=== PATIENT | female | born 1945 ===

== ENCOUNTER 2018-01-02 06:36 | Day surgery (SDC) | payer OTHER ==
[2018-01-02 07:12] VITALS: O2SAT 100
[2018-01-02] MEDS ORDERED: Propofol 10 mg/ml Inj (20 ML) ONE ×2 (07:54→08:30)
[2018-01-02] MEDS ORDERED: Lactated Ringer's 500 ML IV ONE ×2 (07:57→08:56)
--- NOTE | 2018-01-02 08:00 | CP.SDSHP ---
Same Day Surgery H & P - History Proposed Procedure: EGD. Colonoscopy - Previous Medical/Surgical History Cardiac: Hypertension Endocrine/Metabolic: Diabetes, Obesity Misc: Other (colon polyps) Previous Surgical History: . SELENE. Uterine myomectomy - Allergies Allergies: Allergies aspirin Allergy (Verified 01/02/18 06:57) RASH - Physical Exam Vital Signs: Vital Signs 01/02/18 06:45 Temperature 97.4 F L Pulse Rate 61 Respiratory 19 Rate Blood Pressure 188/57 H O2 Sat by Pulse 100 Oximetry Mental Status: Alert & Oriented x3 Neuro: WNL Heart: WNL Lungs: WNL GI: WNL - Impression Impression: heartburn. epigastric pain. h/o colon polyps Pt. Evaluated Today:Candidate for Anesthesia & Procedure: Yes - Date & Time Date: 01/02/18 Time: 08:00 Short Stay Discharge - Short Stay Discharge Admitting Diagnosis/Reason for Visit: EPIGASTRIC PAIN/HEARTBURN/P/H COLON POLYPS Disposition: HOME/ ROUTINE
[2018-01-02 09:12] VITALS: TEMP 97
[2018-01-02] MEDS ORDERED: Pantoprazole 40 mg EC Tab PO ONE (09:15)
[2018-01-02 09:55] VITALS: PULSE 56
[2018-01-02 10:05] VITALS: BP 186/56; RESP 18
== END 2018-01-02 10:03 | disposition home or self-care (01) ==
LOC: C.ENDO 06:36
PROVIDERS: ATTEND Internal Medicine Gastroenterology
DX: D12.5 Benign neoplasm of sigmoid colon (principal); R10.13 Epigastric pain; K57.30 Diverticulosis of large intestine without perforation or abscess without bleeding; D12.3 Benign neoplasm of transverse colon; K64.1 Second degree hemorrhoids; Z86.010 Personal history of colon polyps; K44.9 Diaphragmatic hernia without obstruction or gangrene; K31.7 Polyp of stomach and duodenum; K21.0 Gastro-esophageal reflux disease with esophagitis; K29.50 Unspecified chronic gastritis without bleeding; B96.81 Helicobacter pylori [H. pylori] as the cause of diseases classified elsewhere; E11.9 Type 2 diabetes mellitus without complications; I10 Essential (primary) hypertension; E66.9 Obesity, unspecified
CPT/HCPCS: 43239; 45385; 82948; 88305; J2001; J2704; J7040; J7120

== ENCOUNTER 2018-05-23 07:43 | Day surgery (SDC) | payer OTHER ==
[2018-05-23 08:28] VITALS: O2SAT 100
[2018-05-23] MEDS ORDERED: Propofol 10 mg/ml Inj (20 ML) ONE (08:42)
[2018-05-23] MEDS ORDERED: Lactated Ringer's 500 ML IV SCH (08:45)
--- NOTE | 2018-05-23 09:03 | CP.SDSHP ---
Same Day Surgery H & P - History Proposed Procedure: colonoscopy Pre-Op Diagnosis: Multiple colon adenomas. Large SSA with piecemeal removal - Previous Medical/Surgical History Cardiac: Hypertension Endocrine/Metabolic: Diabetes Misc: Other (Gerd, Hpylori gastritis, colon polyps, ) Previous Surgical History: . T & A - Allergies Allergies: Allergies aspirin Allergy (Verified 01/02/18 06:57) RASH - Physical Exam Vital Signs: Vital Signs 05/23/18 08:10 Temperature 97.6 F Pulse Rate 63 Respiratory 19 Rate Blood Pressure 152/59 H O2 Sat by Pulse 100 Oximetry Mental Status: Alert & Oriented x3 Neuro: WNL Heart: WNL Lungs: WNL GI: WNL - Impression Impression: Multiple colon polysp. Large SSA with piecemeal removal Pt. Evaluated Today:Candidate for Anesthesia & Procedure: Yes - Date & Time Date: 05/23/18 Time: 09:03 Short Stay Discharge - Short Stay Discharge Admitting Diagnosis/Reason for Visit: GERD, PERSONAL HISTORY OF POLYP Disposition: HOME/ ROUTINE
[2018-05-23 09:37] VITALS: TEMP 98.9
[2018-05-23 10:27] VITALS: PULSE 52; RESP 19
[2018-05-23 10:40] VITALS: BP 128/65
== END 2018-05-23 10:27 | disposition home or self-care (01) ==
LOC: C.ENDO 07:43
PROVIDERS: ATTEND Internal Medicine Gastroenterology
DX: Z12.11 Encounter for screening for malignant neoplasm of colon (principal); D12.3 Benign neoplasm of transverse colon; K57.30 Diverticulosis of large intestine without perforation or abscess without bleeding; K64.1 Second degree hemorrhoids; K63.89 Other specified diseases of intestine; Z86.010 Personal history of colon polyps; K21.9 Gastro-esophageal reflux disease without esophagitis; I10 Essential (primary) hypertension; E11.9 Type 2 diabetes mellitus without complications; Z86.19 Personal history of other infectious and parasitic diseases; Z87.19 Personal history of other diseases of the digestive system; Z98.890 Other specified postprocedural states; Z79.84 Long term (current) use of oral hypoglycemic drugs; Z79.899 Other long term (current) drug therapy; Z88.6 Allergy status to analgesic agent
CPT/HCPCS: 45385; 82948; 88305; J2704; J7120